=== PATIENT | female | born 1975 | race Two or more races ===

== ENCOUNTER 2021-09-05 21:03 | Emergency (ER) | payer OTHER ==
[~2021-09-05] VITALS: Ht 160 cm; Wt 46.7 kg
[~2021-09-05 21:03] MED LIST: SYPRINE PO
[2021-09-05] MEDS ORDERED: PREVACID15 M1 (22:01)
[2021-09-05] MEDS ORDERED: TUSNEL LIQUID178 ML PO (23:51)
[2021-09-05] MEDS ORDERED: PEPCID AC20 MG PO (23:51)
[2021-09-05] MEDS ORDERED: METOCLOPRAMIDE10 MG PO (23:51)
== END 2021-09-06 00:06 | disposition home or self-care (01) ==
LOC: ER 21:03
DX: K29.70 Gastritis, unspecified, without bleeding (principal); M94.0 Chondrocostal junction syndrome [Tietze]; Z88.6 Allergy status to analgesic agent

== ENCOUNTER 2021-09-19 10:19 | Emergency (ER) | payer OTHER ==
[~2021-09-19] VITALS: Ht 160 cm; Wt 46.7 kg
[~2021-09-19 10:19] MED LIST changes: +METOCLOPRAMIDE10 MG PO; +PEPCID AC20 MG PO; +PREVACID15 M1; +TUSNEL LIQUID178 ML PO
== END 2021-09-19 14:32 | disposition home or self-care (01) ==
LOC: ER 10:19
DX: K29.70 Gastritis, unspecified, without bleeding (principal)

== ENCOUNTER 2022-06-15 10:34 | Emergency (ER) | payer OTHER ==
[~2022-06-15] VITALS: Ht 160 cm; Wt 46.3 kg
[2022-06-15] MEDS ORDERED: PEPCID AC10 MG (10:47)
== END 2022-06-15 14:54 | disposition home or self-care (01) ==
LOC: ER 10:34
DX: K21.9 Gastro-esophageal reflux disease without esophagitis (principal)

== ENCOUNTER 2022-09-02 15:17 | Emergency (ER) | payer OTHER ==
[~2022-09-02] VITALS: Ht 160 cm; Wt 45.4 kg
[~2022-09-02 15:17] MED LIST changes: +PEPCID AC10 MG
== END 2022-09-02 19:43 | disposition home or self-care (01) ==
LOC: ER 15:17
DX: K52.9 Noninfective gastroenteritis and colitis, unspecified (principal); Z91.013 Allergy to seafood; Z88.0 Allergy status to penicillin; Z88.6 Allergy status to analgesic agent; Z88.2 Allergy status to sulfonamides